=== PATIENT | female | born 1970 ===

== ENCOUNTER → 2023-03-17 | Emergency (ER) | payer SELFPAY ==
[~2023-03-17] MED LIST: FENTANYL CITR 100 MCG/2 ML ONE; KETOROLAC 30 MG/ML INJ ONE
[2023-03-18 00:55] LABS: Absolute Lymphocytes (CBC) 2.6 K/uL (0.7-4.9); Hematocrit 37.6 % (36.0-45.0); Lymphocytes % 23.1 % (15.3-44.8); MCV 89.2 fL (80-100); Platelets 388 thou/uL (152-406); RBC Red Blood Cell Count 4.21 M/uL (3.86-4.86)
[2023-03-18 01:12] LABS: Potassium 3.8 mEq/L (3.5-5.1)
[2023-03-18 01:25] LABS: Renal Epithelial <5 /HPF (None Seen); Specific Gravity 1.021 (1.005-1.030); Urine Bacteria None Seen /HPF (<20); Urine Bilirubin NEGATIVE (Negative); Urine Blood 1+ (Negative); Urine Clarity Clear (Clear); Urine Color Light-Yellow (Yellow); Urine Glucose NEGATIVE (Negative); Urine Mucus Slight /HPF (None Seen); Urine Protein NEGATIVE (Negative); Urine RBC <5 /HPF (None Seen); Urine Urobilinogen Normal (Normal); Urine pH 5.5 (5.0-7.0)
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
[2023-03-18 04:06] VITALS: TEMP 98.2; O2SAT 100
[2023-03-18 04:22] VITALS: BP 133/77
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
== END ==
LOC: ER 22:51
DX: S22.41XA Multiple fractures of ribs, right side, initial encounter for closed fracture (principal); S20.01XA Contusion of right breast, initial encounter; V47.5XXA Car driver injured in collision with fixed or stationary object in traffic accident, initial encounter
CPT/HCPCS: 71045; 71260; 74177; Q9967